=== PATIENT | male | born 1950 ===

== ENCOUNTER 2021-10-27 | Outpatient (REF) | payer MEDICARE, SELFPAY | END 2021-10-27 00:01 | disposition home or self-care (01) | LOC: HO.LNP | PROVIDERS: Visit Provider Otolaryngology | DX: B37.0 Candidal stomatitis (principal) | CPT/HCPCS: 87102 ==

== ENCOUNTER 2023-06-23 10:01 | Outpatient (AMB) | payer MEDICARE, SELFPAY ==
--- NOTE | 2023-06-23 10:03 | MHC.OFFVIS ---
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 Martinez. Patient reports he is here for a follow up for his bilateral knee replacement he states he is feeling good and has no concerns at this time. He continues with his home exercise program. He does see a chiropractor for chronic neck and back pains. Allergies amoxicillin Adverse Reaction (Mild, Verified 06/23/23 10:09) Nausea Medication List - Last Reconciled 06/23/23 by Baldemar Martinez MD amoxicillin 2,000 mg (4 x 500 mg) PO ONCE atorvastatin mg PO clindamycin HCl mg PO ezetimibe mg PO insulin lispro (Humalog KwikPen (U-100) Insulin) subcut leflunomide mg PO metformin 500 mg PO DAILY triamterene-hydrochlorothiazid 37.5-25 mg caps PO PFSH Surgical History (Updated 06/23/23 @ 10:12 by Saira Lemus CMA) History of surgery on left wrist Hx of hand surgery Hx of foot surgery Hx of right knee surgery Hx of left knee surgery Social History (Updated 06/23/23 @ 10:12 by Saira Lemus CMA) Patient Tobacco Use Status: Never used Tobacco 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al status: retired 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: Left 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 Physical Exam Const Other: Well-nourished well-developed very friendly male awake alert and oriented x3 in no acute distress Extrem Other: Bilateral lower extremity examination shows good capillary refill, no skin lesions noted, normal sensation light touch Bilateral knee examination shows that the surgical incisions are well healed, no erythema, range of motion from -3 degrees to 115 degrees, his patellae track well Results Reviewed Results Reviewed: X-rays of the patient's bilateral knees taken today show total knee arthroplasties in good position with no signs of loosening, no acute bony abnormalities Assessment & Plan Assessment & Plan (1) Left knee pain: Code(s): M25.562 - Pain in left knee (2) Right knee pain: Code(s): M25.561 - Pain in right knee Plan Mr. Jauregui continues to do well after undergoing bilateral total knee replacement surgeries. He will continue with his home exercise program. He does know to take antibiotics before any dental work. He will contact me prior to his annual follow-up appointment should any questions or concerns arise. I spent 22 minutes in reviewing the patient's records and imaging studies, seeing the patient and documenting in the medical record. Orders: Orders XR knee LT 3V Today M25.562 - Pain in left knee XR knee RT 3V Today M25.561 - Pain in right knee Coding Level of Care Code Est Pt Level 2 (00298) Diagnoses Left knee pain M25.562 Right knee pain M25.561
== END 2023-06-23 10:46 | disposition home or self-care (01) ==
PROVIDERS: Visit Provider Orthopaedic Surgery
DX: M25.562 Pain in left knee (principal); M25.561 Pain in right knee
CPT/HCPCS: 99213

== ENCOUNTER 2023-06-23 10:01 | Outpatient (REF) | payer MEDICARE, SELFPAY ==
--- NOTE | ~2023-06-23 | XR_ITS ---
EXAMINATION: 1. RADIOGRAPHS RIGHT KNEE 2. RADIOGRAPHS LEFT KNEE CLINICAL INFORMATION: Bilateral knee pain COMPARISON: None TECHNIQUE: 3 views of each knee were obtained FINDINGS: Right knee: Patient is status post cemented total knee arthroplasty. Components are in expected orientation. There is no periprosthetic fracture identified. Tiny suprapatellar joint effusion. No localized soft tissue swelling. Mild vascular calcifications. Left knee: Patient status post cemented total knee arthroplasty. No periprosthetic fracture. Some asymmetric lucency around the medial femoral component may represent an element of loosening. No suprapatellar joint effusion. Mild vascular calcifications. No localized soft tissue swelling. XR/XR knee RT 3V IMPRESSION: 1. Tiny right-sided suprapatellar joint effusion. 2. Some asymmetric lucency around the medial femoral component of the left knee may represent an element of loosening.
--- NOTE | ~2023-06-23 | XR_ITS ---
EXAMINATION: 1. RADIOGRAPHS RIGHT KNEE 2. RADIOGRAPHS LEFT KNEE CLINICAL INFORMATION: Bilateral knee pain COMPARISON: None TECHNIQUE: 3 views of each knee were obtained FINDINGS: Right knee: Patient is status post cemented total knee arthroplasty. Components are in expected orientation. There is no periprosthetic fracture identified. Tiny suprapatellar joint effusion. No localized soft tissue swelling. Mild vascular calcifications. Left knee: Patient status post cemented total knee arthroplasty. No periprosthetic fracture. Some asymmetric lucency around the medial femoral component may represent an element of loosening. No suprapatellar joint effusion. Mild vascular calcifications. No localized soft tissue swelling. XR/XR knee LT 3V IMPRESSION: 1. Tiny right-sided suprapatellar joint effusion. 2. Some asymmetric lucency around the medial femoral component of the left knee may represent an element of loosening.
== END 2023-06-23 10:02 | disposition home or self-care (01) ==
LOC: HO.HOSX 10:01
PROVIDERS: Visit Provider Orthopaedic Surgery
DX: M25.562 Pain in left knee (principal); M25.561 Pain in right knee; Z79.899 Other long term (current) drug therapy; Z96.653 Presence of artificial knee joint, bilateral
CPT/HCPCS: 73562; 99212

== ENCOUNTER 2023-09-29 10:27 | Outpatient (AMB) | payer MEDICARE, SELFPAY ==
--- NOTE | 2023-09-29 10:30 | A.OFFVIS_ITS ---
Intake Visit Reasons: ov-B/L knee replacement Intake Note: Randal is a 72 year old male who presents to the office today for a follow up bilateral TKA. Pt states his knees are doing well. He reports mild intermittent discomfort in both of his knees. He continues to see a chiropractor for his chronic neck pain and low back pain. He has been going to formal physical therapy at [facility]. The patient states that he is due to get an MRI of his lumbar spine in the near future. Following the MRI he plans to be evaluated by Dr. Horvath from neurosurgery at [facility]. Allergies amoxicillin Adverse Reaction (Mild, Verified 09/29/23 10:30) Nausea Medication List - Last Reconciled 09/29/23 by Baldemar Martinez MD adalimumab (Humira) 40 mg subcut Q2W amoxicillin 2,000 mg (4 x 500 mg) PO ONCE atorvastatin mg PO clindamycin HCl mg PO ezetimibe mg PO insulin glargine (Lantus Solostar U-100 Insulin) units subcut insulin lispro (Humalog KwikPen (U-100) Insulin) subcut leflunomide mg PO metformin 500 mg PO DAILY triamterene-hydrochlorothiazid 37.5-25 mg caps PO PFSH Surgical History (Updated 06/23/23 @ 10:12 by Saira Lemus CMA) History of surgery on left wrist Hx of hand surgery Hx of foot surgery Hx of right knee surgery Hx of left knee surgery Social History (Updated 06/23/23 @ 10:12 by Saira Lemus CMA) Patient Tobacco Use Status: Never used Tobacco 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al status: retired 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: Left 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 Physical Exam Const Other: Well-nourished well-developed very friendly male awake alert and oriented x3 in no acute distress Extrem Other: Bilateral lower extremity examination shows good capillary refill, no skin lesions noted, normal sensation light touch Bilateral knee examination shows that the surgical incisions are well healed, no erythema, full active extension and flexion to 115 degrees, his patellae track well Assessment & Plan Assessment & Plan (1) Right knee pain: Code(s): M25.561 - Pain in right knee Category: Medical (2) Left knee pain: Code(s): M25.562 - Pain in left knee Category: Medical Plan Mr. Jauregui continues to do well after undergoing bilateral total knee replacem ent surgeries. He will continue with his home exercise program. He does know to take antibiotics before any dental work. He will contact me prior to his annual follow-up appointment should any questions or concerns arise. Feel free to call me at any time should questions regarding his orthopedic management arise. I spent 21 minutes in reviewing the patient's records and imaging studies, darwin shah the patient and documenting in the medical record. Coding Level of Care Code Est Pt Level 3 (65161) Diagnoses Right knee pain M25.561 Left knee pain M25.562
== END 2023-09-29 10:44 | disposition home or self-care (01) ==
PROVIDERS: Visit Provider Orthopaedic Surgery
DX: M25.561 Pain in right knee (principal); M25.562 Pain in left knee; Z96.653 Presence of artificial knee joint, bilateral
CPT/HCPCS: 99213

== ENCOUNTER → 2023-09-29 10:27 | Outpatient (BNVA) | payer MEDICARE, SELFPAY | PROVIDERS: Visit Provider Orthopaedic Surgery | DX: M25.561 Pain in right knee (principal); M25.562 Pain in left knee; Z96.653 Presence of artificial knee joint, bilateral | CPT/HCPCS: 99212 ==

== ENCOUNTER 2024-07-20 07:40 | Outpatient (AMB) | payer MEDICARE, SELFPAY ==
--- OUTSIDE RECORDS SUMMARY | 2024-07-20 07:43 | XMS_ITS | Continuity of Care Document ---
Author Organization [facility] [address] [place] [address] Phone [phone] Care Team Providers Care Net Applications Developer Name Role Phone Randal Lombardo M.D. 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 Onset: 11/13/2021 Dyslipidemia Latoya Modi M.D. Ons et: 11/13/2021 Osteoarthritis of knee Magali Rodriguez Onset: 11/13/2021 Erectile dysfunction Charles Rodriguez Onset: 11/13/2021 Obesity Latoya Modi M.D. Ons et: 11/13/2021 Peripheral edema Latoya Modi M.D. On set: 11/13/2021 Pure hypercholesterolemia Latoya Modi M.D. Onset: 11/13/2021 Osteoarthritis of spinal facet joint Latoya Locke M.D. Onset: 11/13/2021 Peripheral venous insufficiency Latoya Alan M.D. 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 4 [id number] ano Use as Directed 4 Times Daily With Insulin Pens 360units E11.Madai Modi M.D. 3 Rpbpmtymq48jq Tablets take 1 tablet by mouth daily 90tabs Latoya Modi M.D. 3 Freestyle Lite TestStrips use 4 times per day as directed (e11.9) 400units E11.Madai Modi M.D. 0 Accu-Chek Fastclix LancetsMisc Prem Esquivel M.D. 0 Triamterene/Hydrochlor xxvknbuyt21.5-25mg Capsules 1 tab by mouth twice a day 30caps Randal Lombardo M.D. 0 Humalog Pmwfmks468Hjgp/ML Solution Pen-Inject Inject 23 To 30 Units Subcutaneously 3 Times Daily DX: E11.9 90units E11.Madai Modi M.D. 0 Freestyle Traci 2/Sensor/Flash Glucose Monitoring Neagfq0Vbodqh Misc Use as Directed, Replace Every 14 Days 6units E11.9 Latoya Modi M.D. 0 Lantus Zgjngeax095Lkqj/ML Solution Pen-Inject Inject Subcutaneously 60 Units Once Daily 60ml E11.9 Latoya Modi M.D. 0 Atorvastatin Eqbncox77ht Tablets Take 1 Tablet By Mouth Every Wednesday And Wednesday 36tabs Latoya Modi M.D. 0 Metformin HCL OM106fo Tablets ER 24HR Take 1 Tablet By Mouth Twice Daily 180tabs Latoya Modi M.D. 0 Aspirin Ec Low Yaed99zu Tablets 1 by mouth every day Leesa Modi M.D. 0 Multivitamin AdultsTablets 1 by mouth every day Latoya Modi M.D. 0 ProbioticTablets 1 by mouth every day Latoya Modi M.D. 0 Mcbezncucmj25wr Tablets Take 1 tablet daily Unknown 0 0 Vital Signs Date Vital Result Comment 03/30/2024 11:02am BP Systolic 120 mmHg BP Diastolic 70 mmHg Heart Rate 96 /min Height 67.5 inches 5'7.50 Weight 273.50 lb BMI (Body Mass Index) 42.2 kg/m2 Results Test Acquired Date Facility Test Result H/L Range Note Hemoglobin A1c 03/30/2024 Inhouse Hemoglobin A1c 6.2% Glucose Fingerstick 03/30/2024 Inhouse Glucose Fingerstick 98 Basic Metabolic Panel (8) 11/11/2023 [facility] Glucose 122 mg/dL High 70-99 BUN 32 mg/dL High 8-27 Creatinine 1.51 mg/dL High 0.76-1.2 7 eGFR 49 mL/min/1. 73 Low >59 BUN/Creatinine Ratio 21 10-24 Sodium 142 mmol/L 134-144 Potassium 4.3 mmol/L 3.5-5.2 Chloride 101 mmol/L 96-106 Carbon Dioxide, Total 26 mmol/L 20-29 Calcium 9.2 mg/dL 8.6-10.2 Albumin/Creatinin e Ratio, Random Urine 11/11/2023 [facility] Creatinine, Urine 76.8 mg/dL Not Estab. Albumin, Urine 15.8 ug/mL Not Estab. Alb/Creat Ratio 21 mg/gcreat 0-29 1 Hemoglobin A1c 11/11/2023 [facility] Hemoglobin A1c 6.4 % High 4.8-5.6 2 Glucose Fingerstick 07/01/2023 Inhouse Glucose Fingerstick 169 Hemoglobin A1c 07/01/2023 Inhouse Hemoglobin A1c 6.4% Lipid Panel 03/08/2023 [facility] Cholesterol, Total 157 mg/dL (<200) Triglyceride 85 mg/dL (<150) HDL Chol 73 mg/dL (>39) LDL Cholesterol , Calculated 67 mg/dL (0-130) Non HDL Cholesterol (Calc) 84 mg/dL (<160) Glucose Fingerstick 03/03/2023 Inhouse Glucose Fingerstick 158 Hemoglobin A1c 03/03/2023 Inhouse Hemoglobin A1c 6.6% Comprehensive Metabolic Panl 10/29/2022 [facility] Glucose 137 mg/dL High (70-99) BUN 36 mg/dL High (8-23) Creatinine 1.3 mg/dL High (0.7-1.2 ) Sodium 139 mmol/L (133-145 ) Potassium 4.5 mmol/L (3.6-5.2 ) Chloride 100 mmol/L (98-107) Bicarbonate 27 mmol/L (22-29) Anion Gap 12 (4-17) Albumin 4.6 GM/DL (3.4-4.8 ) Calcium 9.3 mg/dL (8.6-10. 5) Bilirubin,Total 0.6 mg/dL (0-1.2 ) Total Protein 6.9 GM/DL (6.2-8.2 ) Ag Ratio 2.0 Ast 12 U/L (0-40) Alk Phos 77 U/L (40-129) Alt 14 U/L (0-41) Estimated GFR Creatinine 58 ML/MIN/1. 73M2 3 Lipid Panel 10/29/2022 [facility] Cholesterol, Total 190 mg/dL (<200) Triglyceride 79 mg/dL (<150) HDL Chol 69 mg/dL (>39) LDL Cholesterol , Calculated 105 mg/dL (0-130) Non HDL Cholesterol (Calc) 121 mg/dL (<160) Urinary Microalbumin 10/29/2022 [facility] Micro-Albumin 18.0 mg/L (<20) 4 Malb/Creat Ratio 13.6 MG/GM (0-20) Urine Creat For Micro Albumin 128.7 mg/dL Hemoglobin A1c 10/27/2022 Inhouse Hemoglobin A1c 6.5% Glucose Fingerstick 10/27/2022 Inhouse Glucose Fingerstick 142 Glucose Fingerstick 06/25/2022 Inhouse Glucose Fingerstick 156 Hemoglobin A1c 06/25/2022 Inhouse Hemoglobin A1c 6.7% Hemoglobin A1c 03/03/2022 [facility] Hemoglobin A1c 6.6 % High (4.0-5.6 ) 5 Comprehensive Metabolic Panl 03/03/2022 [facility] Glucose 142 mg/dL High (70-99) BUN 24 mg/dL High (8-23) Creatinine 1.4 mg/dL High (0.7-1.2 ) Sodium 140 mmol/L (133-145 ) Potassium 4.9 mmol/L (3.6-5.2 ) Chloride 99 mmol/L (98-107) Bicarbonate 30 mmol/L High (22-29) Anion Gap 11 (4-17) Albumin 4.8 GM/DL (3.4-4.8 ) Calcium 9.3 mg/dL (8.6-10. 5) Bilirubin,Total 0.4 mg/dL (0-1.2 ) Total Protein 7.1 GM/DL (6.2-8.2 ) Ag Ratio 2.1 Ast 16 U/L (0-40) Alk Phos 69 U/L (40-129) Alt 16 U/L (0-41) Estimated GFR Creatinine 55 ML/MIN/1. 73M2 6 Lipid Panel 03/03/2022 [facility] Cholesterol, Total 206 mg/dL High (<200) Triglyceride 114 mg/dL (<150) HDL Chol 74 mg/dL (>39) LDL Cholesterol , Calculated 109 mg/dL (0-130) Non HDL Cholesterol (Calc) 132 mg/dL (<160) Vitamin B12 03/03/2022 [facility] Vitamin B12 830 pg/mL (232-124 5) Hemoglobin A1c 02/26/2022 [facility] Hemoglobin A1c <pending> Vitamin B12 02/26/2022 [facility] Vitamin B12 <pending> Glucose Fingerstick 02/26/2022 Inhouse Glucose Fingerstick 148 Glucose Fingerstick 11/13/2021 Inhouse Glucose Fingerstick 115 1 Normal: 0 - 29 Moderately increased: 30 - 300 Severely increased: >300 2 Prediabetes: 5.7 - 6 .4 Diabetes: >6.4 Glycemic control for adults with diabetes: <7.0 3 Creatinine based est imated glomerular filtration (eGFR) in adults is calculated using the National Kidney Foundation recommended 2020 CKD-EPI equation. Estimates GFR from serum creatinine, age and sex. 4 The urine microalbum in test is designed to monitor renal function. When screening for Bence Strong proteinuria, urine electrophoresis is recommended. 5 MONITORING: In known diabetic patients, hemoglobin A1c targets should be discussed with health care provider. DIAGNOSTIC USE: The [place] Diabetes Association (ADA) and the World Health Organization (WHO) recommend the use of HbA1c to diagnose diabetes using a threshold of 6.5%. Patients who have an HbA1c between 5.7% and 6.4% are considered at increased risk for developing diabetes in the future. CAUTION: Falsely low HbA1c results may be observed in patients with hemolytic anemia, homozygous forms of abnormal hemoglobin (e.g. SS, CC, SC), , recent blood loss or hemoglobin F greater than 7%. Fructosamine may be used as an alternate test in these cases. REFERENCE: ADA: Standards of Medical Care in Diabetes 2020, The Journal of Clinical and Applied Research and Education Volume 43, Supplement 1 6 Creatinine based est imated glomerular filtration (eGFR) in adults is calculated using the National Kidney Foundation recommended 2020 CKD-EPI equation. Estimates GFR from serum creatinine, age and sex. Procedures Date Code Description Status 03/30/2024 57341 Glucose Monitoring Interpeta tion And Report Completed 02/26/2022 83304 Glucose Monitoring Interpeta tion And Report Completed 11/13/2021 77008 Glucose Monitoring Interpeta tion And Report Completed Medical Devices Description No Information Available Encounters Type Date Location Provider Dx Diagnosis Office Visit 03/30/2024 11:00a Main Office Latoya Modi M.D. E11.3292 Type 2 diab with mild nonp rtnop without mclr edema, l eye I10 Essential (primary) hypertension E78.00 Pure hypercholestero lemia, unspecified E66.01 Morbid (severe) obes ity due to excess calories Z68.41 Body mass index [BMI ] 40.0-44.9, adult Assessments Date Code Description Provider 03/30/2024 E11.3292 Type 2 diabetes mellitus with mild nonproliferative diabetic retinopathy without macular edema, left eye Latoya Modi M.D. 03/30/2024 I10 Essential (primary) hyperten charisse Latoya Modi M.D. 03/30/2024 E78.00 Pure hypercholes terolemia, unspecified Latoya Modi M.D. 03/30/2024 E66.01 Morbid (severe) obesity due to excess calories Latoya Modi M.D. 03/30/2024 Z68.41 Body mass index [BMI] 40.0-44.9, adult Latoya Modi M.D. Plan of Treatment Future Appointment(s):* 07/31/2024 2:15 pm - Latoya Modi M.D. at Main Office 11/08/2023 - Latoya Modi M.D.* E11.3292 Type 2 diabetes mellitus with mild nonproliferative diabetic retinopathy without macular edema, left eye * I10 Essential (primary) hypertension * E78.00 Pure hypercholesterolemia, unspecified Functional Status Description No Information Available Mental Status Description No Information Available Referrals Description No Information Available
--- OUTSIDE RECORDS SUMMARY | 2024-07-20 07:43 | XMS_ITS | Clinical Summary ---
Author Organization [address] [place] [address] [place] [phone] Phone Care Team Providers Care Planning Analyst Name Role Phone Randal Lombardo MD Primary Care Provider [phone] Allergies Active Allergy Reactions Criticality Noted Date Comments Amoxicillin GI intolerance 06/06/2024 Medications colchicine (COLCRYS) 0.6 mg tablet Take 1 tablet (0.6 mg total) by mouth 1 (one) time each day. 05/27/19 25 025 Active inulin (PREBIOTIC FIBER ORAL) Take 2 tablets by mouth 1 (one) time each day. Active ezetimibe (ZETIA) 10 mg tablet Take 1 tablet (10 mg total) by mouth 1 (one) time each day. Active metFORMIN (FORTAMET) 500 mg 24 hr tablet Take 1 tablet (500 mg total) by mouth 2 (two) times a day. Do not crush, chew, or split. Active atorvastatin (LIPITOR) 10 mg tablet Take 1 tablet (10 mg total) by mouth 3 (three) times a week. Mon, Wed, and Fri Active insulin lispro 100 unit/mL injection Inject under the skin 3 (three) times a day before meals. -Administer within 15 minutes of a meal Take anywhere 23-30 per meal Active insulin glargine (LANTUS) 100 unit/mL injection Inject 4,000 Units under the skin at bedtime. Sliding scale Active clindamycin (CLEOCIN) 300 mg capsule Take 1 capsule (300 mg total) by mouth if needed. 2 caps by mouth 1 hr prior to dental work. Active apixaban (ELIQUIS) 5 mg tabletIndication s:Paroxysmal atrial fibrillation (CMS/HCC V24, CMS/HCC V28) Take 1 tablet (5 mg total) by mouth 2 (two) times a day. 180 each 1 06/07/19 25 Active metoprolol tartrate (LOPRESSOR) 25 mg tabletIndication s:Paroxysmal atrial fibrillation (CMS/HCC V24, CMS/HCC V28) Take 1 tablet (25 mg total) by mouth 2 (two) times a day. 180 each 1 06/24/19 25 Active tamsulosin (FLOMAX) 0.4 mg 24 hr capsule Take 1 capsule (0.4 mg total) by mouth 1 (one) time each day with breakfast. 2 tablets daily Active coenzyme Q-10 30 mg capsule Take 1 capsule (30 mg total) by mouth 1 (one) time each day. Active fluticasone propionate (FLONASE) 50 mcg/actuation nasal spray Administer 1 spray into each nostril 1 (one) time each day. Shake gently. Before first use, prime pump. After use, clean tip and replace cap. Active aspirin 81 mg EC tablet Take 1 tablet (81 mg total) by mouth 1 (one) time each day. Active aspirin 325 mg EC tablet Take 2 tablets (650 mg total) by mouth 1 (one) time each day. 05/27/19 25 025 Discontinu ed(Therapy completed) pantoprazole (PROTONIX) 40 mg EC tablet Take 1 tablet (40 mg total) by mouth 1 (one) time each day. 05/27/19 25 025 Discontinu ed(Discont inued by another clinician) tamsulosin (FLOMAX) 0.4 mg 24 hr capsule Take 1 capsule (0.4 mg total) by mouth 2 (two) times a day. 05/27/19 25 025 cyclobenzaprine (FLEXERIL) 5 mg tablet Take 1 tablet (5 mg total) by mouth 1 (one) time each day if needed. 02/16/20 24 025 Discontinu ed(Discont inued by another clinician) metoprolol tartrate (LOPRESSOR) 25 mg tabletIndication s:Paroxysmal atrial fibrillation (CMS/HCC V24, CMS/HCC V28) Take 1 tablet (25 mg total) by mouth 2 (two) times a day. 180 each 1 03/ 025 Discontinu ed(Reorder ) Active Problems Problem Noted Date Diagnosed Date Activity intolerance 07/05/2024 Assessment & Plan (07/05/2024 6:47 AM EDT): Acute viral pericarditis 06/06/2024 Assessment & Plan (07/04/2024 8:37 AM EDT): During his hospitalization in May 2024, he was diagnosed with likely post influenza A myopericarditis repeat echocardiogram completed 06/07/2024 did not show any concerning findings related to this. He has completed his aspirin taper and is now back to 81 mg daily; he will continue on colchicine for a total of 90 days as previously discussed. He has not had any recurrent chest discomfort since discharge but continues to have activity intolerance and shortness of breath that are most likely related to his severe aortic stenosis. Worrisome signs or symptoms for which he should return to care were reviewed; he is aware to seek urgent medical attention as appropriate. The patient was advised to seek emergent medical attention by calling 911 if they were to develop severe dyspnea, chest pain that did not resolve with rest, or if they were to faint. Assessment & Plan (06/06/2024 12:34 PM EDT): During his recent hospitalization earlier this month, he was diagnosed with likely post influenza A myopericarditis. The patient reports that he has 1 week left of aspirin taper and then will be stopping it; he will continue on colchicine as prescribed for total of 90 days and has plenty of medication left to complete this course. He will continue with PPI for GI prophylaxis in addition to these medications. EKG in office today remains relatively unchanged from previous. He has not had any recurrent chest discomfort since discharge but continues to have vague shortness of breath and fatigue; however, he admits that both of these were present prior to falling ill in April. Worrisome signs or symptoms for which he should return to care were reviewed; he is aware to seek urgent medical attention as appropriate. The patient was advised to seek emergent medical attention by calling 911 if they were to develop severe dyspnea, chest pain that did not resolve with rest, or if they were to faint. Orders: Transthoracic echocardiogram (TTE) complete with PRN contrast, bubble, strain, and 3D order panel; Future Paroxysmal atrial fibrillation (CMS/HCC V24, CMS /HCC V28) 06/06/2024 Assessment & Plan (07/05/2024 6:52 AM EDT): New onset atrial fibrillation with RVR noted in the setting of post influenza A myopericarditis; he spontaneously converted to normal sinus rhythm after being started on a diltiazem drip while inpatient. EKG at last visit revealed normal sinus rhythm; rhythm remains regular on exam today and he has no symptoms to present concern for recurrence of A-fib. His chest discomfort had resolved completely once he converted to normal sinus rhythm. He remains on metoprolol tartrate 25 mg twice daily with adequate rate control; he is anticoagulated on Eliquis 5 mg twice daily for cardioembolic prophylaxis. [id number] score is equal to 3 for age, history of hypertension, and history of diabetes, which represents a 4.6% annual risk of stroke/TIA/systemic embolism. We discussed the risks and benefits of continuing with anticoagulation and he wishes to continue with current plan; he is on the appropriate dose for his age of less than 80 years, weight of greater than 60 kg, and creatinine of less than 1.5 on 05/26/2024. We will not make any changes to these medications today. Should he experience any symptoms to present concern for recurrence of atrial fibrillation, he will notify our office, seeking urgent medical attention as appropriate. Assessment & Plan (06/06/2024 12:34 PM EDT): New onset atrial fibrillation with RVR noted in the setting of post influenza A myopericarditis. The patient spontaneously converted to normal sinus rhythm after being started on a diltiazem drip while inpatient earlier this month. EKG today reveals the patient remains in normal sinus rhythm; he has not had any symptoms to present concern for recurrence. It appears as though his main symptom may have been chest discomfort as this resolved completely once he had converted to normal sinus rhythm. He remains on metoprolol tartrate 25 mg twice daily with adequate rate control; he is anticoagulated on Eliquis 5 mg twice daily for cardioembolic prophylaxis. [id number] score is equal to 3 for age, history of hypertension, and history of diabetes, which represents a 4.6% annual risk of stroke/TIA/systemic embolism. We discussed the risks and benefits of continuing with anticoagulation and he wishes to continue with current plan; he is on the appropriate dose for his age of less than 80 years, weight of greater than 60 kg, and creatinine of less than 1.5 on 05/26/2024. We will not make any changes to these medications today. Should he experience any symptoms to present concern for recurrence of atrial fibrillation, he will notify our office, seeking urgent medical attention as appropriate. Orders: apixaban (ELIQUIS) 5 mg tablet; Take 1 tablet (5 mg total) by mouth 2 (two) times a day. metoprolol tartrate (LOPRESSOR) 25 mg tablet; Take 1 tablet (25 mg total) by mouth 2 (two) times a day. ECG 12 lead Cardiac murmur 06/06/2024 Assessment & Plan (06/26/2024 1:41 PM EDT): Unfortunately, image quality was poor on his most recent echocardiogram completed earlier this month while inpatient. It did show aortic stenosis; however, the severity of this was unable to be assessed. A2 is not well heard on auscultation today and his murmur at the right upper sternal border appears to be pansystolic, presenting concern for severe aortic stenosis. Additionally, the patient has reported vague but ongoing fatigue and shortness of breath, presenting further concern for severe . On auscultation, he is also noted to have a high-pitched murmur, possibly suggestive of tricuspid regurgitation. As such, we will update an echocardiogram to reevaluate his valvular dysfunction and continue to readdress this as needed; fortunately, we have openings within the next few days and will work to get him in as soon as possible. Worrisome signs or symptoms for which she should return to care were reviewed; both the patient and his verbalized understanding. Orders: Transthoracic echocardiogram (TTE) complete with PRN contrast, bubble, strain, and 3D order panel; Future Aortic valve stenosis 06/06/2024 Assessment & Plan (07/05/2024 6:52 AM EDT): The patient was found to have severe aortic stenosis on most recent echocardiogram from 07/08/2024; he is quite symptomatic with activity intolerance causing fatigue and shortness of breath with exertion. He has been seen in consultation earlier today by Dr. Mosher who has begun the workup for aortic valve replacement. The patient verbalizes understanding of the plan ahead as well as the risks associated with it; questions answered. Will await further testing for determination of surgical versus TAVR approach. Assessment & Plan (07/03/2024 9:53 AM EDT): Randal has symptomatic, severe aortic stenosis. Will I think you be reasonable candidate for surgical aortic valve replacement, unless there are high risk features for the success or durability of TAVR, TAVR would be a preferable approach for faster recovery and is the patient's preference. We had a discussion of the natural history of aortic stenosis and the management options which include continued medical therapy, transcatheter aortic valve replacement, surgical aortic valve replacement or palliative care. We reviewed the risk and benefits of these approaches and decided to proceed with an evaluation for TAVR. Periprocedural risks with estimated likelihood include stroke at 2%, permanent pacemaker at 8 to 10%, major bleeding at 3%, vascular complication at 1 to 2%, and at 1 to 2%. The patient accepts these risks and would like to proceed. The evaluation process will include a cardiac catheterization, evaluation by cardiothoracic surgery and a TAVR CTA. The studies will be arranged in coordination with our office and the TAVR coordinators at the [facility] structural heart disease program. After all the studies have been completed the patient's care will be reviewed in a multidisciplinary meeting in the next steps will be determined. Assessment & Plan (06/06/2024 12:34 PM EDT): As above. Orders: Transthoracic echocardiogram (TTE) complete with PRN contrast, bubble, strain, and 3D order panel; Future Fatigue 06/06/2024 Assessment & Plan (06/06/2024 12:34 PM EDT): The patient reports vague fatigue and shortness of breath that he has difficulty describing further; this may be multifactorial in origin related to recent influenza illness with postviral pericarditis as well as underlying valvular dysfunction, obesity, and deconditioning due to back pain. He is a snorer but reports feeling well rested in the morning; he declines a sleep study at present and verbalizes understanding of the potential long-term negative implications of untreated sleep apnea as a pertains to his cardiovascular health. We will continue to readdress this once his echocardiogram has been completed; we may want to consider an ischemic workup in the near future given he has several risk factors including advanced age, obesity, hypertension, hyperlipidemia, and diabetes. Orders: Transthoracic echocardiogram (TTE) complete with PRN contrast, bubble, strain, and 3D order panel; Future Secondary hypercoagulable state ([facility] V24) Assessment & Plan (07/04/2024 8:37 AM EDT): Assessment & Plan (06/06/2024 12:34 PM EDT): Shortness of breath 06/06/2024 Assessment & Plan (07/04/2024 8:37 AM EDT): Assessment & Plan (06/06/2024 12:34 PM EDT): As above. His shortness of breath appears to be longstanding and has been addressed previously by his PCP; the patient reports previously having normal PFTs as well as normal chest x-rays. Once the results of his echo have been reviewed, we will continue to readdress this; however we must consider that this may be an anginal equivalent and may indicate the need for an ischemic workup in the near future. I will plan to see him in short interval follow-up for reevaluation. Orders: Transthoracic echocardiogram (TTE) complete with PRN contrast, bubble, strain, and 3D order panel; Future Primary hypertension 06/06/2024 Assessment & Plan (07/04/2024 8:37 AM EDT): Blood pressure is stable on current antihypertensive regimen, typically managed by his PCP; continue metoprolol. Assessment & Plan (06/06/2024 12:34 PM EDT): Blood pressure is currently well-controlled on metoprolol; he is currently not taking triamterene/hydrochlorothiazide as previously prescribed by his PCP and his PCP is aware. He will continue to follow-up with his PCP as needed regarding further titration of his antihypertensives. Hyperlipidemia 06/06/2024 Assessment & Plan (07/04/2024 8:37 AM EDT): Typically managed by his PCP; we do not have an updated lipid panel for review. LDL goal for this patient was a history of diabetes is less than 70; would recommend titration of antilipid agents by his PCP as appropriate. For now, continue atorvastatin 10 mg daily. Assessment & Plan (06/06/2024 12:34 PM EDT): Typically managed by his PCP; we do not have an updated lipid panel for review. LDL goal for this patient was a history of diabetes is less than 70; would recommend titration of antilipid agents by his PCP as appropriate. For now, continue atorvastatin 10 mg daily. Bilateral carotid bruits 06/06/2024 Assessment & Plan (07/04/2024 8:37 AM EDT): The patient reports previously having had screenings for carotid stenosis done by [facility]; however, he he is unsure if they have ever shown carotid stenosis. He was recently scheduled to have a repeat carotid duplex completed but ended up being hospitalized; I have encouraged him to reschedule this and have requested copies of previous reports as well as this report once the duplex is completed. Assessment & Plan (06/06/2024 12:34 PM EDT): The patient reports previously having had screenings for carotid stenosis done by [facility]; however, he he is unsure if they have ever shown carotid stenosis. He was recently scheduled to have a repeat carotid duplex completed but ended up being hospitalized; I have encouraged him to reschedule this and have requested copies of previous reports as well as this report once the duplex is completed. Snoring 06/06/2024 Assessment & Plan (06/06/2024 12:34 PM EDT): Above; the patient declines a sleep study. Type 2 diabetes mellitus, wi th long-term current use of insulin ([facility] V24, [facility] V28) 06/06/2024 Stage 3 chronic kidney disease ([facility] V24, [facility] V28) 06/06/2024 GERD (gastroesophageal reflux disease) BPH (benign prostatic hyperplasia) 06/06/2024 Rheumatoid arthritis ([facility] V24, [facility] V28) 06/06/2024 Encounters Date Type Department Care Team Description 07/11/[address] [facility] [address] [facility] [address] [place] [phone] Mark Mosher MD 07/04/[address] [facility] [address] [facility] [address] [place] [phone] Randal Lombardo MD Medical Records 07/03/2024 3:10 PM EDT Office Visit [facility] [place] [place] [phone] Alma Delia Burt NP Nonrheumatic aortic valve stenosis (Primary Dx); Activity intolerance; Shortness of breath; Acute viral pericarditis; Paroxysmal atrial fibrillation ([facility] V24, [facility] V28); Secondary hypercoagulable state ([facility] V24); Primary hypertension; Hyperlipidemia, unspecified hyperlipidemia type; Bilateral carotid bruits 07/03/2024 9:[address] [facility] [address] [facility] [address] [place] [phone] Mark Mosher MD Nonrheumatic aortic valve stenosis (Primary Dx) 06/27/2024 Telephone [facility] [address] [place] [phone] Abilio Walker MD called pt to schedule TAVR talk with Dr Reyes or Dr Mosher 06/21/2024 Telephone [facility] [address] [place] [phone] Jessica Donaldson MA metoprolol tartrate? 06/16/2024 Telephone [facility] [address] [place] [phone] Jessica Donaldson MA meds question (Leflunomide 20mg?) 06/07/2024 7:30 AM EDT Ancillary Procedure [facility] [address] [place] [phone] Acute viral pericarditis; Cardiac murmur; Aortic valve stenosis, etiology of cardiac valve disease unspecified; Fatigue, unspecified type; Shortness of breath 06/06/2024 9:40 AM EDT Office Visit [facility] [address] [place] [phone] Alma Delia Burt NP Acute viral pericarditis (Primary Dx); Paroxysmal atrial fibrillation ([facility] V24, CMS/[facility] V28); Secondary hypercoagulable state ([facility] V24); Cardiac murmur; Aortic valve stenosis, etiology of cardiac valve disease unspecified; Fatigue, unspecified type; Shortness of breath; Primary hypertension; Hyperlipidemia, unspecified hyperlipidemia type; Bilateral carotid bruits; Snoring; Hospital discharge follow-up from Last 3 Months Surgical History Surgery Date Site/Laterality Comments KNEE SURGERY PROCEDURE:KNEE SURGERY FOOT SURGERY PROCEDURE:FOOT SURGERY HAND SURGERY PROCEDURE:HAND SURGERY JOINT REPLACEMENT PROCEDURE:JOINT REPLACEMENT Medical History Medical History Date Comments Diabetes mellitus ([facility] V24, [facility] V28) DX:Diabetes mellitus ([facility]) Family History Medical History Relation Name Comments Cancer Mother Relation Name Status Comments Mother Social History Tobacco Use Types Packs/Day Years Used Date Smoking Tobacco: Never Smokeless Tobacco: Never Tobacco Cessation:Counseling Given: Not Answered Alcohol Use Standard Drinks/Week Comments Not Currently 0 (1 standard drink = 0.6 oz pur e alcohol) Sex and Gender Information Value Date Recorded Sex Assigned at Not on file Legal Sex Male 6:41 PM EST Gender Identity Not on file Sexual Orientation Not on file Obstetrics History Last Filed Vital Signs Vital Sign Reading Time Taken Comments Blood Pressure 118/62 07/03/2024 3:03 PM EDT Pulse 78 07/03/2024 3:03 PM EDT Temperature - - Respiratory Rate - - Oxygen Saturation 96% 07/03/2024 3:03 PM EDT Inhaled Oxygen Concentration - - Weight 122 kg (268 lb) 07/03/2024 3:03 PM EDT Height 172.7 cm (5' 8 ) 07/03/2024 3:03 PM EDT Body Mass Index 40.75 07/03/2024 3:03 PM EDT Plan of Treatment Health Maintenance Due Date Last Done Comments Diabetes: Annual Foot Exam 11/29/1961 Diabetes: Annual Retina Eye Exam 11/29/1961 Zoster Vaccines (3 of 3) 08/08/2018 06/13/2018, 06/20 Cholesterol Screening (Lipid Panel) 02/26/2022 Colorectal Cancer Screening: Colonoscopy 02/26/2022 Depression Screening 02/26/2022 Falls Risk Assessment 02/26/2022 Hepatitis C Screening 02/26/2022 Medicare Annual Wellness Visit 02/26/2022 Social Influencers of Health Screening 02/26/2022 DTaP,Tdap,and Td Vaccines (3 - Td or Tdap) 03/24/2023 03/24/2013, 08/11/2002 Diabetes: Annual Urine Albumin-Creatinine Ratio (uACR) 06/05/2024 Diabetes: Blood Sugar Control Test (HGBA1C) 06/05/2024 COVID-19 Vaccine (7 - Moderna risk season) 2024 12/25/2023, 01/05/2022, 09/14/2021, Additional history exists Diabetes: Annual GFR (Glomerular Filtration Rate) 07/12/2025 07/12/2024 Hypertension/CHF/CAD Annual BMP Blood Test 07/12/2025 07/12/2024 Pneumococcal Vaccine: 50+ Years Completed 02/10/2023, 03/18/2018, 12/29/2016 RSV Immunization Adult Patients Completed 02/18/2023 Influenza Vaccine Completed 01/29/2024, , 02/04/2022, Additional history exists HIB Vaccines Aged Out No longer eligi ble based on patient's age to complete this topic HPV Vaccines Aged Out No longer eligi ble based on patient's age to complete this topic Hepatitis A Vaccines Aged Out No long er eligible based on patient's age to complete this topic Hepatitis B Vaccines Aged Out No long er eligible based on patient's age to complete this topic IPV Vaccines Aged Out No longer eligi ble based on patient's age to complete this topic MMR Vaccines Aged Out No longer eligi ble based on patient's age to complete this topic Meningococcal ACWY Vaccine Aged Out N o longer eligible based on patient's age to complete this topic Meningococcal B Vaccine Aged Out No l onger eligible based on patient's age to complete this topic RSV Immunization Patients Under 20 months Aged Out No longer eligible based on patient's age to complete this topic Varicella Vaccines Aged Out No longer eligible based on patient's age to complete this topic Procedures Procedure Name Priority Date/Time Associated Diagnosis Comments BASIC METABOLIC PANEL Routine 07/12/2024 8:29 AM EDT CBC WITH AUTO DIFFERENTIAL Routine 07/12/2024 8:29 AM EDT PROTHROMBIN TIME WITH INR Routine 07/12/2024 8:29 AM EDT TRANSTHORACIC ECHOCARDIOGRAM (TTE) COMPLETE W/ CONTRAST Routine 06/07/2024 8:30 AM EDT Acute viral pericarditis Cardiac murmur Aortic valve stenosis, etiology of cardiac valve disease unspecified Fatigue, unspecified type Shortness of breath ECG 12-LEAD Routine 06/06/2024 12:35 PM EDT Paroxysmal atrial fibrillation (CMS/HCC V24, CMS/HCC V28) from Last 3 Months Results * (ABNORMAL) CBC auto differential (07/12/2024 8:29 AM EDT) WBC 6.2 3.4 - 10.8 x10E3/uL [facility] 1 RBC 3.83(L) 4.14 - 5.80 x10E6/uL [facility] 1 Hemoglobin 12.3(L) 13.0 - 17.7 g/dL [facility] 1 Hematocrit 38.0 37.5 - 51.0 % [facility] 1 MCV 99(H) 79 - 97 fL [facility] 1 MCH 32.1 26.6 - 33.0 pg [facility] 1 MCHC 32.4 31.5 - 35.7 g/dL [facility] 1 RDW 14.0 11.6 - 15.4 % [facility] 1 Platelets 158 150 - 450 x10E3/uL [facility] 1 Neutrophils 58 Not Estab. % [facility] 1 Lymphocytes 18 Not Estab. % [facility] 1 Monocytes 11 Not Estab. % [facility] 1 Eosinophils 11 Not Estab. % [facility] 1 Basophils 1 Not Estab. % [facility] 1 Neutrophils Absolute 3.6 1.4 - 7.0 x10E3/uL [facility] 1 Lymphocytes Absolute 1.1 0.7 - 3.1 x10E3/uL [facility] 1 Monocytes Absolute 0.7 0.1 - 0.9 x10E3/uL [facility] 1 Eosinophils Absolute 0.7(H) 0.0 - 0.4 x10E3/uL [facility] 1 Basophils Absolute 0.1 0.0 - 0.2 x10E3/uL [facility] 1 Immature Granulocytes Relative 1 Not Estab. % [facility] 1 Immature Grans (Abs) 0.1 0.0 - 0.1 x10E3/uL [facility] 1 07/12/2024 8:29 AM EDT 07/12/2024 Narrative [facility] 1 - 07/13/2024 1:06 AM EDT Performed at: ??01 - [facility] [address] ??[id number] Cardiovascular Rn: Jacey Truong MD, Phone: ??[id number] us Mark Mosher MD LAB BLOOD ORDERABLES Final Resul t [facility] 1 * Prothrombin time with INR (07/12/2024 8:29 AM EDT) Pathologist [facility] Normalized Ratio (INR) 1.0 0.9 - 1.1 [facility] 1 Prothrombin Time 10.8 9.2 - 11.4 SEC [facility] 1 07/12/2024 8:29 AM EDT 07/12/2024 Narrative [facility] 1 - 07/12/2024 3:57 PM EDT Performed at: ??01 - [address] ??[id number] Cardiovascular Rn: Stephane Colon MD, Phone: ??[phone] Mark Mosher MD LAB BLOOD ORDERABLES Final Resul t Performing Organization Address [facility] Co de Phone Number [facility] * (ABNORMAL) Basic metabolic panel (07/12/2024 8:29 AM EDT) Glucose 172(H) 70 - 99 mg/dL [facility] 1 Blood Urea Nitrogen (BUN) 21 8 - 27 mg/dL [facility] 1 Creatinine 1.30(H) 0.76 - 1.27 mg/dL [facility] 1 eGFR 58(L) >59 mL/min/1.7 3 [facility] 1 BUN/Creatinine Ratio 16 10 - 24 [facility] 1 Sodium 141 134 - 144 mmol/L [facility] 1 Potassium 4.7 3.5 - 5.2 mmol/L [facility] 1 Chloride 102 96 - 106 mmol/L [facility] 1 Carbon Dioxide 24 20 - 29 mmol/L [facility] 1 Calcium 8.9 8.6 - 10.2 mg/dL [facility] 1 07/12/2024 8:29 AM EDT 07/12/2024 Narrative [facility] 1 - 07/13/2024 1:06 AM EDT Performed at: ??01 - [facility] [address] ??[id number] Cardiovascular Rn: Jacey Truong MD, Phone: ??[phone] Mark Mosher MD LAB BLOOD ORDERABLES Final Resul t Performing Organization Address [facility]/ZIP Co de Phone Number [facility] * (ABNORMAL) TRANSTHORACIC ECHOCARDIOGRAM (TTE) COMPLETE W/ CONTRAST (06/07/2024 8:30 AM EDT) Left Atrium Minor [place] 5.7 cm CV PACS Left Atrium Major [place] 5.8 cm CV PACS LA Area Sys (A2C) 22 cm2 CV PACS LA Area Sys (A4C) 22 cm2 CV PACS LA Volume (BP) 69 mL CV PACS RA Area 23.6 cm2 CV PACS RA 2D Volume 92 mL CV PACS AV Mean Gradient 42 mmHg CV PACS Ao VTI 98.2 cm CV PACS AV Peak Alvaro 3.9 m/s CV PACS AV Peak Gradient 62 mmHg CV PACS AV Area Continuity Equation 0.8 cm2 CV PACS AV Area Peak Velocity 0.9 cm2 CV PACS Aortic Sinus Valsalva 3.3 cm CV PACS Ascending Aorta 3.7 cm CV PACS IVSD 1.3(A) 0.6 - 1.0 cm CV PACS LVIDD 5.1 4.2 - 5.8 cm CV PACS LVIDS 3.7 2.5 - 4.0 cm CV PACS LVOT Diameter 2.3 cm CV PACS LVOT Mean Alvaro 0.6 m/s CV PACS LVOT Mean Grad 2 mmHg CV PACS LVOT Mean Grad 2 mmHg CV PACS LVOT Peak VTI 17.9 cm CV PACS LVOT Peak Alvaro 0.9 m/s CV PACS LVOT Peak Gradient 3 mmHg CV PACS LVPWD 1.4(A) 0.6 - 1.0 cm CV PACS MV E' Tissue Velocity Lateral 4 cm/s CV PACS MV E' Tissue Velocity Septal 5 cm/s CV PACS LVOT Area 4.2 cm2 CV PACS LVOT Stroke Volume 74 mL CV PACS MV Deceleration [place] 6.6 m/s2 CV PACS E Wave Deceleration Time 157 119 - 242 ms CV PACS MV PHT 46 ms CV PACS MV Peak A Alvaro 0.92 m/s CV PACS MV Peak E Alvaro 1.03 m/s CV PACS MV Mean Gradient 3 mmHg CV PACS MV Mean Gradient 3 mmHg CV PACS MV VTI 27.0 cm CV PACS Mitral Valve Max Velocity 1.1 m/s CV PACS MV Peak Gradient 5 mmHg CV PACS MV Area PHT 4.8 cm2 CV PACS MV Area Continuity Equation 2.8 cm2 CV PACS PV Acceleration Time 98 ms CV PACS RV Diastolic Basal Dimension 4.9(A) 2.5 - 4.1 cm CV PACS TAPSE 24 mm CV PACS E/E' Ratio Septal 21 CV PACS E/E' Ratio Averaged 23 CV PACS Relative Wall Thickness ratio 0.55 CV PACS LVOT:AV VTI Index 0.18 CV PACS FS 27 % CV PACS LV Mass 2D 285 g CV PACS MV VTI:LVOT VTI ratio 1.5 CV PACS LVOT flow 249 mL/s CV PACS AV Velocity Ratio 0.23 CV PACS E/A Ratio 1.1 CV PACS E/E' Ratio Lateral 26 CV PACS BSA 2.39 m2 CV PACS LA Volume Index (BP) 30 mL/m2 CV PACS LVIDD Index 2.23 cm/m2 CV PACS LVIDS Index 1.62 cm/m2 CV PACS LV Mass Index 2D 124(A) 50 - 102 g/m2 CV PACS LVOT Stroke Index 32 mL/m2 CV PACS RA 2D Volume Index 40(A) 18 - 32 mL/m2 CV PACS AMY Index (VTI) 0.33 cm2/m2 CV PACS AMY Index (Pk Alvaro) 0.39 cm2/m2 CV PACS Ascending Aorta Index 1.62 cm/m2 CV PACS Anatomical Region Laterality Modality Ultrasound Narrative 06/10/2024 2:16 PM EDT ?Left ventricle cavity size is normal. Left ventricular systolic function is in the normal range with an ejection fraction of 55-60%. ?No regional LV wall motion abnormalities noted. ?Left ventricle moderate concentric hypertrophy. ?Right ventricle cavity is moderately enlarged. Right ventricular systolic function is normal. ?Aortic valve demonstrates severe stenosis. ?Aortic valve leaflets are moderately thickened and exhibit moderately reduced excursion. ?Tricuspid valve leaflets exhibit normal excursion. ?No previous echocardiogram available for comparison Left Ventricle Left ventricle cavity size is normal. There is moderate concentric hypertrophy. Systolic function is normal with an ejection fraction of 55-60%. There are no regional LV wall motion abnormalities. Unable to assess diastolic function. Right Ventricle Right ventricle cavity is dilated. Systolic function is normal. Left Atrium Left atrium cavity size is normal. Right Atrium Right atrium cavity is mildly dilated. Mitral Valve The leaflets are mildly thickened and exhibit normal excursion. There is moderate annular calcification. There is no regurgitation or stenosis. Tricuspid Valve The leaflets exhibit normal excursion. There is trace regurgitation. Cannot assess RVSP. Aortic Valve The aortic valve is trileaflet. The leaflets are thickened and exhibit reduced excursion. There is trace regurgitation. There is severe stenosis. Pulmonic Valve The pulmonic valve was not well visualized. No significant pulmonic valve regurgitation. No significant pulmonary valve stenosis noted. Ascending Aorta The aorta appears normal in size. Study Details Overall the study quality was technically difficult. Definity contrast was given to enhance imaging. us Alma Delia Burt NP CV ECHO PROCEDURES Fi nal Result * ECG 12 lead (06/06/2024 12:35 PM EDT) Ventricular Rate ECG 79 BPM GEMUSE Atrial Rate 79 BPM GEMUSE P-R Interval 186 ms GEMUSE QRS Duration 82 ms GEMUSE Q-T Interval 368 ms GEMUSE QTc 421 ms GEMUSE P Wave [place] 40 degrees GEMUSE R [place] 52 degrees GEMUSE T [place] -169 degrees GEMUSE ECG Interpretation Normal sinus rhythm T wave abnormality, consider inferolateral ischemia Abnormal ECG When compared with ECG of 05/24/2024 No significant change was found Confirmed by Dayana MARINELLI JOHN ([id number]) on 06/06/2024 2:23:51 PM GEMUSE 06/06/2024 10:5 7 AM EDT 06/06/2024 2:23 PM EDT Alma Delia Burt NP ECG ORDERABLES Edite d Result - Final GEMUSE from Last 3 Months Insurance [employer] Care Teams Planning Analyst Relationship Specialty Start Date End Date Randal Lombardo MD [address] [facility] [place] [phone] PCP - General Internal Medicine 05/31/18
--- OUTSIDE RECORDS SUMMARY | 2024-07-20 07:43 | XMS_ITS | Clinical Summary ---
Author Organization [facility] Address [address] [place] [address] Care Team Providers Care Archeologist Classical Name Role Phone Randal Lombardo MD Primary Care Provider [phone] Allergies Active Allergy Reactions Criticality Noted Date Comments Amoxicillin Nausea And Vomiting 07/01/2021 Medications Medication Sig Dispensed Refills Start Date End Date Status benzonatate (TESSALON) 100 MG capsule TK 1-3 C PO QD 0 05/19/2018 Active HUMALOG KWIKPEN 100 UNIT/ML injection 0 03/28/2018 Active rosuvastatin (CRESTOR) tablet 10 mg 0 06/12/2018 Active metFORMIN (GLUCOPHAGE) tablet 500 mg Take 500 mg by mouth 2 (two) times a day with meals. 0 Active aspirin EC 325 MG tablet Take 325 mg by mouth every 6 (six) hours as needed for pain. 0 Active ACETAMINOPHEN EXTRA STRENGTH 500 MG tablet 0 11/02/2018 Active celecoxib (CeleBREX) 200 MG capsule 1 11/02/2018 Active gabapentin (NEURONTIN) 300 MG capsule 0 11/02/2018 Active triamterene-hydroc hlorothiazide (DYAZIDE) 37.5-25 MG per capsule TK 1 C PO D 5 09/11/2018 Active warfarin (COUMADIN) 1 MG tablet 0 11/02/2018 Active doxycycline monohydrate (MONODOX) 100 MG capsule TK 1 C PO BID FOR 10 DAYS 0 12/16/2018 Active LANTUS SOLOSTAR 100 UNIT/ML injection 0 12/02/2018 Active sulfamethoxazole-t rimethoprim (BACTRIM DS) 800-160 MG per tablet Take 1 tablet (160 mg of trimethoprim total) by mouth 2 (two) times a day. 14 tablet 0 05/21/2019 Active Morphine Sulfate ER (MS CONTIN) 15 MG TBCR Take 1 tablet (15 mg total) by mouth every 12 (twelve) hours. May fill for lesser quantity. 10 tablet 0 05/30/2019 Active warfarin (COUMADIN) 1 MG tablet Take 5 tabs daily or as directed by physician 75 tablet 0 06/05/2019 Active Additional Information Patient not taking.Reason: Other, Reported on 07/04/2019 oxyCODONE (ROXICODONE) 5 MG immediate release tablet Take 1 to 2 tabs every 4-6 hours as needed for pain. May fill for lesser quantity. 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 Arthritis of knee, left 06/14/2018 Family History Medical History Relation Name Comments Cancer Mother Relation Name Status Comments Mother Social History Tobacco Use Types Packs/Day Years Used Date Smoking Tobacco: Never Assessed Sex and Gender Information Value Date Recorded Sex Assigned at Not on file Gender Identity Not on file Sexual Orientation Not on file Job Start Date Occupation Industry Not on file Not on file Not on file Last Filed Vital Signs Vital Sign Reading Time Taken Comments Blood Pressure - - Pulse - - Temperature - - Respiratory Rate - - Oxygen Saturation - - Inhaled Oxygen Concentration - - Weight 119.3 kg (263 lb) 07/01/2021 10:27 AM EDT Height 175.3 cm (5' 9 ) 07/01/2021 10:27 AM EDT Body Mass Index 38.84 07/01/2021 10:27 AM EDT Plan of Treatment Health Maintenance Due Date Last Done Comments Hepatitis C Screening 1950 COVID-19 Vaccine (#1) 05/29/1952 Depression Screening 1963 BMI Counseling 11/29/1969 Preventative Health Evaluation 11/29/1969 Colon Cancer Screening (Colonoscopy) 11/29/1996 DTap / Tdap / Td (1 - Tdap) 08/12/2002 08/11/2002 Fall Risk Assessment 11/29/2016 Shingrix-Zoster Vaccine (2 of 2) 08/08/2018 06/13/2018 Influenza Vaccine (#1) 2023 1, 12/19/2019, 01/02/2019, Additional history exists RSV Adult > 60+ Yrs or (1 - 1-dose 75+ series) 11/29/2026 Pneumococcal Vaccine Completed 03/18/2018, 12/30/19 17 Hepatitis B Vaccines Aged Out No long er eligible based on patient's age to complete this topic RSV Ped < 20 months Aged Out No longe r eligible based on patient's age to complete this topic Care Teams Archeologist Classical Relationship Specialty Start Date End Date Randal Lombardo MD [address] [facility] [address] [place] [address] PCP - General Internal Medicine 05/31/18
--- NOTE | 2024-07-20 07:55 | A.OFFVIS_ITS ---
Intake Visit Reasons: ov- B/L TKA follow up Intake Note: Randal is a 72 year old male who presents to the office today for routine follow- up after undergoing bilateral total knee replacement surgeries. The patient reports mild intermittent discomfort in both of his knees. He states that he is due to undergo cardiac valve surgery in the near future. The patient states that he is usually somewhat short of breath. He states that he was recently in [facility] for treatment of pneumonia. Allergies amoxicillin Adverse Reaction (Mild, Verified 09/29/23 10:30) Nausea Medication List - Last Reconciled 07/20/24 by Baldemar Martinez MD adalimumab (Humira) 40 mg subcut Q2W amoxicillin 2,000 mg (4 x 500 mg) PO ONCE atorvastatin mg PO clindamycin HCl 600 mg (2 x 300 mg) PO ONCE ezetimibe mg PO insulin glargine (Lantus Solostar U-100 Insulin) units subcut insulin lispro (Humalog KwikPen (U-100) Insulin) subcut leflunomide mg PO metformin 500 mg PO DAILY triamterene-hydrochlorothiazid 37.5-25 mg caps PO PFSH Surgical History (Updated 07/20/24 @ 08:08 by Baldemar Martinez MD) History of surgery on left wrist Hx of hand surgery Hx of foot surgery Hx of right knee surgery Hx of left knee surgery Social History (Updated 06/23/23 @ 10:12 by Saira Lemus CMA) Patient Tobacco Use Status: Never used Tobacco 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al status: retired 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: Left 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 Physical Exam Extrem Other: Bilateral knee examination shows that the surgical incisions are well healed, no erythema, full active extension and flexion to 120 degrees, no signs of infection, minimal discomfort with range of motion, moderate diffuse bilateral lower extremity swelling Results Reviewed Results Reviewed: X-rays of the patient's bilateral knees taken today show total knee arthroplasties in good position with no signs of loosening, no acute bony abnormalities Assessment & Plan Assessment & Plan (1) History of total bilateral knee replacement: Code(s): Z96.653 - Presence of artificial knee joint, bilateral Category: Medical Plan Mr. Jauregui presents for routine follow-up after undergoing bilateral total knee replacement surgeries. The patient does have diffuse bilateral lower extremity swelling most likely due to his cardiac pathology. He does not have any clinical evidence of infection. He can continue activities as tolerated. I did encourage the patient to contact his primary care doctor or call 911 if his breathing problems worsen in any way. He will contact me prior to his annual follow-up appointment should any questions or concerns arise. I spent 22 minutes in reviewing the patient's records and imaging studies, seeing the patient and documenting in the medical record. Orders: Orders XR Knee David 3V Today M25.561 - Pain in right knee, M25.562 - Pain in left knee Coding Level of Care Code Est Pt Level 3 (83859) Complex EM visit Add On G2211 Diagnoses History of total bilateral knee replacement Z96.653
== END 2024-07-20 08:02 | disposition home or self-care (01) ==
LOC: HO.HOS 07:40
PROVIDERS: Visit Provider Orthopaedic Surgery
DX: R22.43 Localized swelling, mass and lump, lower limb, bilateral (principal); Z96.653 Presence of artificial knee joint, bilateral
CPT/HCPCS: 99213; G2211

== ENCOUNTER → 2024-07-20 07:41 | Outpatient (BNV) | payer MEDICARE, SELFPAY | PROVIDERS: Visit Provider Radiology Diagnostic Radiology | DX: M25.561 Pain in right knee (principal); M25.562 Pain in left knee | CPT/HCPCS: 73562 ==

== ENCOUNTER 2024-07-20 08:13 | Outpatient (REF) | payer MEDICARE, SELFPAY ==
--- NOTE | ~2024-07-20 | XR_ITS ---
EXAMINATION: X-ray knee, bilaterally 3 views. CLINICAL INFORMATION: Bilateral knee pain. TECHNIQUE: 3 views both knees. COMPARISON: June 23, 2023. FINDINGS: Right knee: Metallic prosthesis with a femoral and tibial component well-seated in the osseous structures. There is loosening involving mostly the tibial plateau component and the medial femoral condyle region. No gross malalignment. Left knee: Metallic prosthesis with a femoral and tibial component with normal alignment. There is loosening involving the tibial plateau proximal metaphysis component and the medial femoral condyle. XR/XR Knee David 3V IMPRESSION: Loosening involving the tibial plateau component and the medial femoral condyle components both hip prosthesis. Electronically signed by: Micah Thomas MD 07/21/2024 08:51 AM EDT
--- OUTSIDE RECORDS SUMMARY | 2024-07-21 08:22 | XMS_ITS | Continuity of Care Document ---
Author Organization [facility] [address] [place] [address] Phone [phone] Care Team Providers Care Exploration Engineer Name Role Phone Randal Lombardo M.D. 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 3 Myebcaifg36ti Tablets take 1 tablet by mouth daily 90tabs Latoya Modi M.D. 3 Freestyle Lite TestStrips use 4 times per day as directed (e11.9) 400units E11.Madai Modi M.D. 0 Accu-Chek Fastclix LancetsMisc Prem Esquivel M.D. 0 Triamterene/Hydrochlor lnopabyjk29.5-25mg Capsules 1 tab by mouth twice a day 30caps Randal Lombardo M.D. 0 Humalog Ypqumwv682Zpoo/ML Solution Pen-Inject Inject 23 To 30 Units Subcutaneously 3 Times Daily DX: E11.9 90units E11.Madai Modi M.D. 0 Freestyle Traci 2/Sensor/Flash Glucose Monitoring Vhehjk4Vdqxxc Misc Use as Directed, Replace Every 14 Days 6units E11.9 Latoya Modi M.D. 0 Lantus Sgryxzad116Jefy/ML Solution Pen-Inject Inject Subcutaneously 60 Units Once Daily 60ml E11.9 Latoya Modi M.D. 0 Atorvastatin Ljelyyu31ys Tablets Take 1 Tablet By Mouth Every Wednesday And Wednesday 36tabs Latoya Modi M.D. 0 Metformin HCL KO903mz Tablets ER 24HR Take 1 Tablet By Mouth Twice Daily 180tabs Latoya Modi M.D. 0 Aspirin Ec Low Vyfp00hk Tablets 1 by mouth every day Leesa Modi M.D. 0 Multivitamin AdultsTablets 1 by mouth every day Latoya Modi M.D. 0 ProbioticTablets 1 by mouth every day Latoya Modi M.D. 0 Rirslfhmobi50pq Tablets Take 1 tablet daily Unknown 0 [...] Inhouse Hemoglobin A1c 6.4% Lipid Panel 03/08/2023 [facility] Cholesterol, Total 157 mg/dL (<200) Triglyceride 85 mg/dL (<150) HDL Chol 73 mg/dL (>39) LDL Cholesterol , Calculated 67 mg/dL (0-130) Non HDL Cholesterol (Calc) 84 mg/dL (<160) Glucose Fingerstick 03/03/2023 Inhouse Glucose Fingerstick 158 Hemoglobin A1c 03/03/2023 Inhouse Hemoglobin A1c 6.6% Comprehensive Metabolic Panl 10/29/2022 [facility] Glucose 137 mg/dL High [...] 58 ML/MIN/1. 73M2 3 Lipid Panel 10/29/2022 [facility] Cholesterol, Total 190 mg/dL (<200) Triglyceride 79 mg/dL (<150) HDL Chol 69 mg/dL (>39) LDL Cholesterol , Calculated 105 mg/dL (0-130) Non HDL Cholesterol (Calc) 121 mg/dL (<160) Urinary Microalbumin 10/29/2022 [facility] Micro-Albumin 18.0 mg/L (<20) 4 Malb/Creat Ratio 13.6 MG/GM (0-20) Urine Creat For Micro Albumin 128.7 mg/dL Hemoglobin A1c 10/27/2022 Inhouse Hemoglobin A1c 6.5% Glucose Fingerstick 10/27/2022 Inhouse Glucose Fingerstick 142 Glucose Fingerstick 06/25/2022 Inhouse Glucose Fingerstick 156 Hemoglobin A1c 06/25/2022 Inhouse Hemoglobin A1c 6.7% Hemoglobin A1c 03/03/2022 [facility] Hemoglobin A1c 6.6 % High (4.0-5.6 ) 5 Comprehensive Metabolic Panl 03/03/2022 [facility] Glucose 142 mg/dL High [...] 55 ML/MIN/1. 73M2 6 Lipid Panel 03/03/2022 [facility] Cholesterol, Total 206 mg/dL High (<200) Triglyceride 114 mg/dL (<150) HDL Chol 74 mg/dL (>39) LDL Cholesterol , Calculated 109 mg/dL (0-130) Non HDL Cholesterol (Calc) 132 mg/dL (<160) Vitamin B12 03/03/2022 [facility] Vitamin B12 830 pg/mL (232-124 5) Hemoglobin A1c 02/26/2022 [facility] Hemoglobin A1c <pending> Vitamin B12 02/26/2022 [facility] Vitamin B12 <pending> Glucose [...] with health care provider. DIAGNOSTIC USE: The [place] [employer] (ADA) and the World Health [...] sex. Procedures Date Code Description Status 03/30/2024 38769 Glucose Monitoring Interpeta tion And Report Completed 02/26/2022 54269 Glucose Monitoring Interpeta tion And Report Completed 11/13/2021 07867 Glucose Monitoring Interpeta tion And Report Completed [...]
--- OUTSIDE RECORDS SUMMARY | 2024-07-21 08:22 | XMS_ITS | Encounter Summary ---
Author Organization [facility] Address [address] [place] [address] Care Team Providers Care Intensive Care Specialist Name Role Phone Randal Lombardo MD Primary Care Provider [phone] Reason for Visit * Reason Onset Date Comments Shortness of Breath 07/20/2024 Encounter Details Date Type Department Care Team ([facility] st Contact Info) Description 07/20/2024 Telephone [facility] [address] [facility] [address] [place] [id number] Alma Delia Burt NP [address] [place] [address] Shortness of Breath Social History Tobacco Use Types Packs/Day Years Used Date Smoking Tobacco: Never Smokeless Tobacco: Never Alcohol Use Standard Drinks/Week Comments Not Currently 0 (1 standard drink = 0.6 oz pur e alcohol) Sex and Gender Information Value Date Recorded Sex Assigned at Not on file Legal Sex Male 6:41 PM EST Gender Identity Not on file Sexual Orientation Not on file documented as of this encounter Progress Notes * Vanessa Rivers RN - 07/20/2024 10:47 AM EDT Noted message below and message was already sent to primary team. * Blake Gonzalez - 07/20/2024 10:41 AM EDT Patient's called back to inform care team that Randal is on his way to [facility] er to be evaluated. She is hoping they do the CT scan while he is there as it is scheduled at [facility] for today anyway. * Vanessa Rivers RN - 07/20/2024 8:48 AM EDT Called pts Julita this AM as not able to LVM on pts cell phone. Is aware for any SOB walking very short distances and wakes him up at night he should be evaluated in the ER. Is not currently on any diuretics. Has hx of pericarditis/AFIB. States she will try to get a hold of him and let him know. States he drove himself to a ortho apt this Am and had a CT scheduled for today, was made aware pt should not be driving. Was evaluated for a TAVR and already had a consult with Dr. Mosher on 07/03/24. * Blake Gonzalez - 07/20/2024 8:28 AM EDT Patient called today because he is very short of breath stating he cannot walk more than 20 feet without feeling like he's out of air. He denies chest pain at this time but says he is having trouble sleeping due to the shortness of breath. Please give him a call back at [phone] to advise. documented in this encounter Plan of Treatment Not on file documented as of this encounter Visit Diagnoses Not on filedocumented in this encounter Care Teams Intensive Care Specialist Relationship Specialty Start Date End Date Randal Lombardo MD [address] [facility] [place] [address] PCP - General Internal Medicine 05/31/18 documented as of this encounter
--- OUTSIDE RECORDS SUMMARY | 2024-07-21 08:22 | XMS_ITS | Clinical Summary ---
Author Organization [address] [place] [address] [place] [id number] Phone Care Team Providers Care Home Specialist Name Role Phone Randal Lombardo MD Primary Care Provider [phone] Allergies Active Allergy Reactions Criticality Noted Date [...] 5 mg twice daily for cardioembolic prophylaxis. [id number] score is equal to 3 for age, [...] 5 mg twice daily for cardioembolic prophylaxis. [id number] score is equal to 3 for age, [...] office and the TAVR coordinators at the [facility] structural heart disease program. After all the [...] 3D order panel; Future Secondary hypercoagulable state ([facility] V24) Assessment & Plan (07/04/2024 [...] wi th long-term current use of insulin ([facility] V24, [facility] V28) 06/06/2024 Stage 3 chronic kidney disease ([facility] V24, [facility] V28) 06/06/2024 GERD (gastroesophageal reflux disease) BPH (benign prostatic hyperplasia) 06/06/2024 Rheumatoid arthritis ([facility] V24, [facility] V28) 06/06/2024 Encounters Date Type Department Care Team Description 07/20/2024 Telephone [facility] [address] [place] [phone] Alma Delia Burt NP Shortness of Breath 07/11/[address] [facility] [address] [place] [address] Mark Mosher MD 07/04/[address] [facility] [address] [place] [address] Randal Lombardo MD Medical Records 07/03/2024 3:10 PM EDT Office Visit [facility] [address] [place] [address] Alma Delia Burt NP Nonrheumatic aortic valve stenosis (Primary Dx); Activity intolerance; Shortness of breath; Acute viral pericarditis; Paroxysmal atrial fibrillation ([facility] V24, [facility] V28); Secondary hypercoagulable state ([facility] V24); Primary hypertension; Hyperlipidemia, unspecified hyperlipidemia type; Bilateral carotid bruits 07/03/2024 9:[address] [facility] [address] [place] [address] Mark Mosher MD Nonrheumatic aortic valve stenosis (Primary Dx) 06/27/2024 [address] [facility] [address] [place] [phone] Abilio Walker MD called pt to schedule TAVR talk with Dr Reyes or Dr Mosher 06/21/2024 Telephone [facility] Cardiology [facility] [address] [place] [address] Jessica Donaldson MA metoprolol tartrate? 06/16/2024 Telephone [facility] [address] [place] [address] Jessica Donaldson MA meds question (Leflunomide 20mg?) 06/07/2024 7:30 AM EDT Ancillary Procedure [facility] [address] [place] [address] Acute viral pericarditis; Cardiac murmur; Aortic valve stenosis, etiology of cardiac valve disease unspecified; Fatigue, unspecified type; Shortness of breath 06/06/2024 9:40 AM EDT Office Visit [facility] [address] [place] [address] Alma Delia Burt NP Acute viral pericarditis (Primary Dx); Paroxysmal atrial fibrillation (CMS/HCC V24, CMS/HCC V28); Secondary hypercoagulable state (CMS/HCC V24); Cardiac murmur; Aortic valve stenosis, etiology [...] History Medical History Date Comments Diabetes mellitus (CMS/HCC V24, CMS/HCC V28) DX:Diabetes mellitus (HCC) Family History Medical History Relation Name Comments [...] CBC auto differential (07/12/2024 8:29 AM EDT) Pathologist [facility] WBC 6.2 3.4 - 10.8 x10E3/uL [facility] [...] AM EDT Performed at: ??01 - [facility] [address] ??[id number] [employer]: Jacey Truong MD, Phone: ??[phone] Mark Mosher MD LAB BLOOD ORDERABLES Final Resul t [facility] 1 * Prothrombin time with INR (07/12/2024 8:29 AM EDT) [facility] International Normalized Ratio (INR) 1.0 0.9 - 1.1 [facility] 1 Prothrombin Time 10.8 9.2 - 11.4 SEC [facility] 1 07/12/2024 8:29 AM EDT 07/12/2024 Narrative [facility] 1 - 07/12/2024 3:57 PM EDT Performed at: ??01 - [address] ??[id number] [employer]: Stephane Colon MD, Phone: ??[phone] Mark Mosher MD LAB BLOOD ORDERABLES Final Resul t Performing Organization Address City/[facility]/ZIP Co de Phone Number [facility] 1 * [...] AM EDT Performed at: ??01 - [facility] [address] ??[id number] [employer]: Jacey Truong MD, Phone: ??[phone] Mark Mosher MD LAB BLOOD ORDERABLES Final Resul t Performing Organization Address City/[facility]/ZIP Co de Phone Number [facility] 1 * (ABNORMAL) TRANSTHORACIC ECHOCARDIOGRAM (TTE) COMPLETE W/ CONTRAST (06/07/2024 8:30 AM EDT) Left Atrium Minor Brent 5.7 cm CV PACS Left Atrium Major Brent 5.8 cm CV PACS LA Area Sys [...] Volume 74 mL CV PACS MV Deceleration [place] 6.6 m/s2 CV PACS E Wave Deceleration [...] Definity contrast was given to enhance imaging. Alma Delia Burt NP CV ECHO PROCEDURES Fi nal Result * ECG 12 lead (06/06/2024 12:35 PM EDT) Ventricular Rate ECG 79 BPM GEMUSE Atrial Rate 79 BPM GEMUSE P-R Interval 186 ms GEMUSE QRS Duration 82 ms GEMUSE Q-T Interval 368 ms GEMUSE QTc 421 ms GEMUSE P Wave Brent 40 degrees GEMUSE R Brent 52 degrees GEMUSE T Brent -169 degrees GEMUSE ECG Interpretation Normal sinus [...] [employer] Care Teams Home Specialist Relationship Specialty Start Date End Date Randal Lombardo [facility] [address] [facility] [phone] PCP - General Internal Medicine 05/31/18
--- OUTSIDE RECORDS SUMMARY | 2024-07-21 08:22 | XMS_ITS | Clinical Summary ---
Author Organization [facility] Address [address] [place] [address] Care Team Providers Care Air Cargo Specialist Name Role Phone Randal Lombardo MD Primary Care Provider [phone] Allergies Active Allergy Reactions Criticality Noted Date [...] age to complete this topic Care Teams Air Cargo Specialist Relationship Specialty Start Date End Date Randal Lombardo MD [address] [facility] [address] [place] [address] PCP - General Internal Medicine 05/31/18
== END 2024-07-20 08:14 | disposition home or self-care (01) ==
LOC: HO.HOSX 08:13
PROVIDERS: Visit Provider Orthopaedic Surgery
DX: Z96.653 Presence of artificial knee joint, bilateral (principal)
CPT/HCPCS: 73562; 99212